=== PATIENT | male | born 1985 | race Caucasian/White ===

== ENCOUNTER 2022-01-17 01:10 | Inpatient (IN) | payer MEDICAID ==
[~2022-01-17] VITALS: Ht 180.3 cm; Wt 74.4 kg
[2022-01-17] VITALS (28 sets, daily range): BP systolic 140–179; BP diastolic 88–134
[2022-01-17] MEDS ORDERED: CLONIDINE 0.2MG TABLET PO ONE (01:30)
[2022-01-17] MEDS ORDERED: ASPIRIN 81MG TABLET PO ONE (01:30)
[2022-01-17] MEDS ORDERED: NITROGLYCERIN OINT 1GM/INCH UDPKT TD ONE (01:30)
[2022-01-17 01:48] LABS: BG BASE EXCESS -4.2 mmol/L (-2.0-2.0); BG CARBOXYHEMOGLOBIN 0.5 % (0.5-1.5); BG DEOXYHEMOGLOBIN 1.5 % (0.0-5.0); BG FRACTION INSPIRED OXYGEN 40; BG HCO3 ACT 21.4 mmol/L (22.0-26.0); BG METHEMOGLOBIN 0.2 % (0.0-1.5); BG OXYGEN SATURATION 98.5 % (92.0-98.5); BG OXYHEMOGLOBIN 97.8 % (94.0-97.0); BG PCO2 41.2 mmHg (35.0-45.0); BG PH 7.333 (7.350-7.450); BG PO2 156.5 mmHg (75.0-100.0); BG SAMPLE SITE LEFT RADIAL; BG TOTAL HEMOGLOBIN 8.8 g/dL (12.0-18.0); BG VENT MODE MASK - BIPAP
[2022-01-17 01:58] LABS: BASOPHILS % 0.7 % (0.0-2.0); EOSINOPHILS % 2.3 % (0.0-5.0); LYMPHOCYTES % 12.6 % (20.0-50.0); MEAN CORPUSCULAR HEMOGLOBIN 29.3 pg (28.0-32.0); MEAN CORPUSCULAR VOLUME 85.5 fL (80.0-94.0); MEAN PLATELET VOLUME 7.9 fl (7.4-10.4); MONOCYTES % 9.2 % (2.0-8.0); NEUTROPHILS % 75.2 % (40.0-76.0); PLATELET 177 x1000/uL (130-400); RED BLOOD CELL COUNT 2.28 mill/uL (4.7-6.1); RED CELL DISTRIBUTION WIDTH 15.7 % (11.6-14.6)
[2022-01-17 02:01] LABS: HEMATOCRIT. 19.5 % (42.0-52.0); HEMOGLOBIN. 6.7 g/dL (14.0-18.0)
[2022-01-17 02:07] LABS: CHLORIDE 100 mEq/L (98-107)
[2022-01-17 02:08] LABS: PARTIAL THROMBOPLASTIN TIME 28.2 sec (23.4-31.0); PROTHROMBIN TIME 10.9 sec (9.6-11.0)
[2022-01-17] MEDS ORDERED: ALBUTEROL (0.083%) 2.5MG/3ML NEB HHN ONE (02:45)
[2022-01-17] MEDS ORDERED: SODIUM BICARBONATE 8.4% 1 MEQ/ML 50ML SYR IV ONE (02:45)
[2022-01-17] MEDS ORDERED: SODIUM POLYSTYRENE SULFONATE 15 G/60 ML BOT PO ONE (02:45)
[2022-01-17] MEDS ORDERED: HYDRALAZINE 20MG/ML VIAL IV ONE (02:45)
[2022-01-17] MEDS ORDERED: DIPHENHYDRAMINE 50MG/ML VIAL IV PRN (04:00)
[2022-01-17] MEDS ORDERED: ACETAMINOPHEN 325MG TABLET PO PRN ×2 (04:00)
[2022-01-17] MEDS ORDERED: MAGNESIUM/ALUMINUM HYDROXIDE/SIMETHICONE 30ML UDC PO PRN (04:00)
[2022-01-17] MEDS ORDERED: GUAIFENESIN 200MG/10ML SUGAR FREE UDC PO PRN (04:00)
[2022-01-17] MEDS ORDERED: IPRATROPIUM/ALBUTEROL 0.5-3(2.5)MG/3ML NEB HHN PRN (04:00)
[2022-01-17] MEDS ORDERED: ONDANSETRON HCL 4MG/2ML INJ IV PRN (04:00)
[2022-01-17 04:37] LABS: BASOPHILS % 0.7 % (0.0-2.0); EOSINOPHILS % 1.6 % (0.0-5.0); LYMPHOCYTES % 10.5 % (20.0-50.0); MEAN CORPUSCULAR HEMOGLOBIN 28.7 pg (28.0-32.0); MEAN CORPUSCULAR VOLUME 85.9 fL (80.0-94.0); MEAN PLATELET VOLUME 7.4 fl (7.4-10.4); MONOCYTES % 10.7 % (2.0-8.0); NEUTROPHILS % 76.5 % (40.0-76.0); PLATELET 190 x1000/uL (130-400); RED BLOOD CELL COUNT 2.33 mill/uL (4.7-6.1); RED CELL DISTRIBUTION WIDTH 15.4 % (11.6-14.6)
[2022-01-17 04:40] LABS: HEMOGLOBIN. 6.7 g/dL (14.0-18.0)
[2022-01-17 05:01] LABS: T4 FREE 1.13 ng/dL (0.76-1.46)
[2022-01-17 05:18] LABS: PHOSPHORUS 8.1 mg/dL (2.5-4.9)
[2022-01-17] MEDS: HYDRALAZINE HCL 100MG TABLET PO SCH ×3 (05:43→22:12)
[2022-01-17] MEDS: NIFEDIPINE XL 30MG TAB PO SCH ×2 (05:44→12:00)
[2022-01-17] MEDS ORDERED: FUROSEMIDE 40MG/4ML VIAL IVP NR (09:30)
[2022-01-17 10:13] LABS: MEAN CORPUSCULAR HEMOGLOBIN 28.9 pg (28.0-32.0); MEAN CORPUSCULAR VOLUME 87.3 fL (80.0-94.0); PLATELET 170 x1000/uL (130-400); RED BLOOD CELL COUNT 2.22 mill/uL (4.7-6.1); RED CELL DISTRIBUTION WIDTH 15.3 % (11.6-14.6)
[2022-01-17 10:14] LABS: HEMATOCRIT 19.4 % (42.0-52.0); HEMOGLOBIN 6.4 g/dL (14.0-18.0)
[2022-01-17 10:43] LABS: BG BASE EXCESS -2.5 mmol/L (-2.0-2.0); BG DEOXYHEMOGLOBIN 2.5 % (0.0-5.0); BG FRACTION INSPIRED OXYGEN 30; BG HCO3 ACT 23.1 mmol/L (22.0-26.0); BG METHEMOGLOBIN 0.8 % (0.0-1.5); BG OXYGEN SATURATION 97.5 % (92.0-98.5); BG OXYHEMOGLOBIN 95.7 % (94.0-97.0); BG PH 7.338 (7.350-7.450); BG PO2 103.9 mmHg (75.0-100.0); BG SAMPLE SITE RIGHT RADIAL; BG TOTAL HEMOGLOBIN 6.4 g/dL (12.0-18.0); BG VENT MODE MASK - BIPAP
[2022-01-17 19:53] LABS: HEPATITIS B SURFACE ANTIGEN NEGATIVE
[2022-01-17] MEDS: SEVELAMER CARBONATE 800 MG TABLET PO SCH (22:11)
[2022-01-18] VITALS (30 sets, daily range): BP systolic 141–202; BP diastolic 76–141
[2022-01-18 06:08] LABS: MEAN CORPUSCULAR HEMOGLOBIN 28.7 pg (28.0-32.0); PLATELET 179 x1000/uL (130-400); RED BLOOD CELL COUNT 2.39 mill/uL (4.7-6.1); RED CELL DISTRIBUTION WIDTH 16.4 % (11.6-14.6)
[2022-01-18] MEDS: PANTOPRAZOLE 40MG DR TABLET PO SCH ×3 (06:13→07:59)
[2022-01-18] MEDS: HYDRALAZINE HCL 100MG TABLET PO SCH ×3 (06:14→21:26)
[2022-01-18 06:39] LABS: PHOSPHORUS 6.3 mg/dL (2.5-4.9)
[2022-01-18 06:52] LABS: HEMATOCRIT 20.1 % (42.0-52.0); HEMOGLOBIN 6.9 g/dL (14.0-18.0); MEAN CORPUSCULAR VOLUME 83.8 fL (80.0-94.0)
[2022-01-18] MEDS: CLONIDINE 0.1MG TABLET PO PRN ×2 (07:05→15:40)
[2022-01-18 07:34] LABS: BG BASE EXCESS -1.2 mmol/L (-2.0-2.0); BG CARBOXYHEMOGLOBIN 0.9 % (0.5-1.5); BG DEOXYHEMOGLOBIN 1.1 % (0.0-5.0); BG HCO3 ACT 23.8 mmol/L (22.0-26.0); BG METHEMOGLOBIN 0.5 % (0.0-1.5); BG OXYGEN SATURATION 98.9 % (92.0-98.5); BG OXYHEMOGLOBIN 97.5 % (94.0-97.0); BG PH 7.382 (7.350-7.450); BG PO2 188.7 mmHg (75.0-100.0); BG SAMPLE SITE RIGHT RADIAL; BG TOTAL HEMOGLOBIN 6.2 g/dL (12.0-18.0); BG VENT MODE MASK - BIPAP
[2022-01-18] MEDS ORDERED: ENOXAPARIN 30MG/0.3ML SYR SUBCUT SCH (09:00)
[2022-01-18] MEDS: HYDRALAZINE 20MG/ML VIAL IV PRN ×2 (09:54→17:52)
[2022-01-18] MEDS: NIFEDIPINE XL 30MG TAB PO SCH (09:54)
[2022-01-18] MEDS: FUROSEMIDE 100MG/10ML VIAL IVP SCH (09:55)
[2022-01-18] MEDS: SEVELAMER CARBONATE 800 MG TABLET PO SCH ×3 (09:55→17:52)
[2022-01-18] MEDS: ENOXAPARIN 30MG/0.3ML SYR SUBCUT SCH (15:38)
[2022-01-19] VITALS (17 sets, daily range): BP systolic 133–188; BP diastolic 44–126
[2022-01-19] MEDS: HYDRALAZINE HCL 100MG TABLET PO SCH ×2 (06:33→14:11)
[2022-01-19 06:39] LABS: HEMATOCRIT. 25.1 % (42.0-52.0); HEMOGLOBIN. 8.4 g/dL (14.0-18.0); MEAN CORPUSCULAR HEMOGLOBIN 28.1 pg (28.0-32.0); MEAN CORPUSCULAR VOLUME 83.5 fL (80.0-94.0); PLATELET 178 x1000/uL (130-400); RED CELL DISTRIBUTION WIDTH 16.7 % (11.6-14.6)
[2022-01-19] MEDS: FUROSEMIDE 100MG/10ML VIAL IVP SCH (09:08)
[2022-01-19] MEDS: NIFEDIPINE XL 30MG TAB PO SCH (09:09)
[2022-01-19] MEDS: SEVELAMER CARBONATE 800 MG TABLET PO SCH ×3 (09:09→18:02)
[2022-01-19] MEDS: PANTOPRAZOLE 40MG DR TABLET PO SCH (09:09)
[2022-01-19] MEDS: DOXAZOSIN MESYLATE 2MG TABLET PO SCH ×2 (14:09→18:02)
[2022-01-19] MEDS: CLONIDINE 0.1MG TABLET PO PRN (14:10)
[2022-01-19] MEDS ORDERED: PANT40TA51 PO (14:10)
[2022-01-19] MEDS ORDERED: DOXA2TAB PO (14:10)
[2022-01-19] MEDS ORDERED: SEVE800T8 PO (14:10)
[2022-01-19] MEDS ORDERED: HYDR100T26 PO (14:10)
[2022-01-19] MEDS: ENOXAPARIN 30MG/0.3ML SYR SUBCUT SCH (14:10)
[2022-01-19] MEDS ORDERED: LABE100T9 PO (14:10)
[2022-01-19] MEDS ORDERED: NIFE-32 PO (14:10)
[2022-01-19 15:29] LABS: PLATELET ESTIMATE NORMAL
[2022-01-19] MEDS ORDERED: LABETALOL HCL 100MG TABLET PO SCH (21:00)
[2022-01-20] MEDS ORDERED: NIFEDIPINE XL 60MG TAB PO SCH (09:00)
== END 2022-01-19 22:15 | disposition home or self-care (01) | DRG 194 ==
LOC: ER 01:17 → 5EST 02:52
PROVIDERS: ADMIT Internal Medicine; ATTEND Internal Medicine
PROC: 5A1D70Z Performance of Urinary Filtration, Intermittent, Less than 6 Hours Per Day (ICD-10-PCS; principal; 2022-01-17)
PROC: 30233N1 Transfusion of Nonautologous Red Blood Cells into Peripheral Vein, Percutaneous Approach (ICD-10-PCS; 2022-01-17)
PROC: 5A09357 Assistance with Respiratory Ventilation, Less than 24 Consecutive Hours, Continuous Positive Airway Pressure (ICD-10-PCS; 2022-01-17)
PROC: 5A1D70Z Performance of Urinary Filtration, Intermittent, Less than 6 Hours Per Day (ICD-10-PCS; 2022-01-18)
PROC: 5A09357 Assistance with Respiratory Ventilation, Less than 24 Consecutive Hours, Continuous Positive Airway Pressure (ICD-10-PCS; 2022-01-18)
PROC: 5A09357 Assistance with Respiratory Ventilation, Less than 24 Consecutive Hours, Continuous Positive Airway Pressure (ICD-10-PCS; 2022-01-19)
DX: I13.2 Hypertensive heart and chronic kidney disease with heart failure and with stage 5 chronic kidney disease, or end stage renal disease (principal); J96.01 Acute respiratory failure with hypoxia; I21.A1 Myocardial infarction type 2; I31.39 Other pericardial effusion (noninflammatory); E83.51 Hypocalcemia; D63.1 Anemia in chronic kidney disease; E83.39 Other disorders of phosphorus metabolism; I27.20 Pulmonary hypertension, unspecified; E66.2 Morbid (severe) obesity with alveolar hypoventilation; E87.5 Hyperkalemia; D64.89 Other specified anemias; I50.9 Heart failure, unspecified; Z20.822 Contact with and (suspected) exposure to COVID-19; I07.1 Rheumatic tricuspid insufficiency; N18.6 End stage renal disease; I16.9 Hypertensive crisis, unspecified; Z99.2 Dependence on renal dialysis; Z82.3 Family history of stroke; Z82.49 Family history of ischemic heart disease and other diseases of the circulatory system; Z87.891 Personal history of nicotine dependence; Z68.22 Body mass index [BMI] 22.0-22.9, adult
CPT/HCPCS: 36415; 36600; 71045; 76770; 80048; 80053; 82375; 82805; 82962; 83036; 83735; 83880; 84100; 84439; 84443; 84484; 85025; 85027; 86705; 86706; 86709; 86803; 86850; 86900; 86920; 87340; 87426; 90935; 93005; 93306; 93970; 94660; 99291; C9803; J0360; J1650; J1940; J3490; P9016

== ENCOUNTER 2022-01-31 04:51 | Inpatient (IN) | payer MEDICAID, OTHER ==
[2022-01-31] VITALS (9 sets, daily range): BP systolic 160–228; BP diastolic 105–146
[~2022-01-31] VITALS: Ht 180.3 cm; Wt 114.8 kg
[~2022-01-31 04:51] MED LIST: DOXA2TAB PO; HYDR100T26 PO; LABE100T9 PO; NIFE-32 PO; PANT40TA51 PO; SEVE800T8 PO
[2022-01-31] MEDS ORDERED: HYDRALAZINE 20MG/ML VIAL IV ONE (11:00)
[2022-01-31 11:15] LABS: CHLORIDE 105 mEq/L (98-107)
[2022-01-31 11:20] LABS: INR 1.1; PROTHROMBIN TIME 11.3 sec (9.6-11.0)
[2022-01-31 11:28] LABS: BASOPHILS % 0.8 % (0.0-2.0); HEMATOCRIT. 24.7 % (42.0-52.0); LYMPHOCYTES % 18.2 % (20.0-50.0); MEAN CORPUSCULAR HEMOGLOBIN 27.7 pg (28.0-32.0); MEAN CORPUSCULAR VOLUME 85.4 fL (80.0-94.0); MEAN PLATELET VOLUME 7.8 fl (7.4-10.4); MONOCYTES % 10.4 % (2.0-8.0); NEUTROPHILS % 67.6 % (40.0-76.0); PLATELET 244 x1000/uL (130-400); RED BLOOD CELL COUNT 2.89 mill/uL (4.7-6.1); RED CELL DISTRIBUTION WIDTH 16.1 % (11.6-14.6)
[2022-01-31] MEDS ORDERED: DEXTROSE 50% WATER 50ML SYRINGE IV NR (12:00)
[2022-01-31] MEDS ORDERED: FUROSEMIDE 40MG/4ML VIAL IVP NR (12:00)
[2022-01-31] MEDS ORDERED: INSULIN REGULAR (HUMULIN R) 300UNITS/3ML VIAL IV NR (12:00)
[2022-01-31] MEDS ORDERED: SODIUM BICARBONATE 8.4% 1 MEQ/ML 50ML SYR IV NR (12:15)
[2022-01-31] MEDS: HYDRALAZINE 20MG/ML VIAL IV NR ×2 (13:26→17:09)
[2022-01-31] MEDS ORDERED: GUAIFENESIN 200MG/10ML SUGAR FREE UDC PO PRN (13:45)
[2022-01-31] MEDS: NIFEDIPINE XL 90MG TAB PO SCH (13:45)
[2022-01-31] MEDS ORDERED: ACETAMINOPHEN 325MG TABLET PO PRN (13:45)
[2022-01-31] MEDS ORDERED: MAGNESIUM/ALUMINUM HYDROXIDE/SIMETHICONE 30ML UDC PO PRN (13:45)
[2022-01-31] MEDS ORDERED: DOCUSATE SODIUM 100MG CAPSULE PO PRN (13:45)
[2022-01-31] MEDS ORDERED: TRAMADOL 50MG TABLET PO PRN (13:45)
[2022-01-31] MEDS ORDERED: ONDANSETRON HCL 4MG/2ML INJ IV PRN (13:45)
[2022-01-31] MEDS ORDERED: HYDROCODONE/ACETAMINOPHEN 5/325MG TABLET PO PRN (13:45)
[2022-01-31] MEDS: HYDRALAZINE HCL 100MG TABLET PO SCH ×2 (14:00→21:04)
[2022-01-31] MEDS: CLONIDINE 0.1MG TABLET PO PRN (17:10)
[2022-01-31 20:33] LABS: HEPATITIS B SURFACE ANTIGEN NEGATIVE
[2022-01-31] MEDS: LABETALOL HCL 100MG TABLET PO SCH (21:04)
[2022-02-01] VITALS (15 sets, daily range): BP systolic 128–176; BP diastolic 68–131
[2022-02-01] MEDS ORDERED: DIPHENHYDRAMINE 50MG/ML VIAL IM PRN ×2 (02:15→04:45)
[2022-02-01] MEDS: HYDRALAZINE HCL 100MG TABLET PO SCH ×3 (06:23→21:06)
[2022-02-01 07:11] LABS: BASOPHILS % 0.9 % (0.0-2.0); EOSINOPHILS % 3.6 % (0.0-5.0); HEMATOCRIT. 23.4 % (42.0-52.0); LYMPHOCYTES % 25.6 % (20.0-50.0); MEAN CORPUSCULAR HEMOGLOBIN 28.5 pg (28.0-32.0); MEAN CORPUSCULAR VOLUME 83.8 fL (80.0-94.0); MEAN PLATELET VOLUME 7.9 fl (7.4-10.4); NEUTROPHILS % 58.9 % (40.0-76.0); PLATELET 223 x1000/uL (130-400); RED BLOOD CELL COUNT 2.79 mill/uL (4.7-6.1); RED CELL DISTRIBUTION WIDTH 16.1 % (11.6-14.6)
[2022-02-01] MEDS ORDERED: NALOXONE HCL 0.4MG/ML VIAL IV PRN (07:30)
[2022-02-01] MEDS ORDERED: DIPHENHYDRAMINE 50MG CAPSULE PO PRN (07:30)
[2022-02-01] MEDS: LABETALOL HCL 100MG TABLET PO SCH (08:34)
[2022-02-01] MEDS: NIFEDIPINE XL 90MG TAB PO SCH (08:35)
[2022-02-01] MEDS: CLONIDINE 0.1MG TABLET PO PRN (08:35)
[2022-02-01 10:23] LABS: CHLORIDE 103 mEq/L (98-107)
[2022-02-01] MEDS: DOXAZOSIN MESYLATE 2MG TABLET PO SCH ×2 (10:31→16:32)
[2022-02-01] MEDS: LABETALOL HCL 200MG TABLET PO SCH ×2 (10:32→21:07)
[2022-02-01 10:38] LABS: HDL CHOLESTEROL 33 mg/dL (40-59); LDL CHOLESTEROL 88 mg/dL (5-100)
[2022-02-02] VITALS (9 sets, daily range): BP systolic 55–163; BP diastolic 85–110
[2022-02-02] MEDS: CLONIDINE 0.1MG TABLET PO PRN (04:31)
[2022-02-02] MEDS: HYDRALAZINE HCL 100MG TABLET PO SCH (05:09)
[2022-02-02] MEDS ORDERED: NIFEDIPINE XL 60MG TAB PO SCH (09:00)
[2022-02-02] MEDS ORDERED: DOXAZOSIN MESYLATE 2MG TABLET PO SCH (09:00)
[2022-02-02] MEDS ORDERED: LABETALOL HCL 200MG TABLET PO SCH (09:00)
== END 2022-02-02 15:15 | disposition home or self-care (01) | DRG 194 ==
LOC: ER 04:51 → 8WST 12:21 → EDBEDREQTM 12:24 → EDBEDREQ 12:24
PROVIDERS: ADMIT Hospitalist; ATTEND Hospitalist
PROC: 5A1D70Z Performance of Urinary Filtration, Intermittent, Less than 6 Hours Per Day (ICD-10-PCS; principal; 2022-01-31)
PROC: 5A1D70Z Performance of Urinary Filtration, Intermittent, Less than 6 Hours Per Day (ICD-10-PCS; 2022-02-01)
PROC: 5A1D70Z Performance of Urinary Filtration, Intermittent, Less than 6 Hours Per Day (ICD-10-PCS; 2022-02-02)
DX: I13.2 Hypertensive heart and chronic kidney disease with heart failure and with stage 5 chronic kidney disease, or end stage renal disease (principal); N18.6 End stage renal disease; D63.1 Anemia in chronic kidney disease; I16.1 Hypertensive emergency; I50.33 Acute on chronic diastolic (congestive) heart failure; I16.0 Hypertensive urgency; E87.5 Hyperkalemia; G47.30 Sleep apnea, unspecified; Z99.2 Dependence on renal dialysis
CPT/HCPCS: 36415; 71045; 80053; 80061; 83880; 84484; 85025; 86705; 86709; 86803; 87340; 90935; 93005; 99291; J0360; J1200; J1815; J1940; J3490

== ENCOUNTER 2022-10-29 12:34 | Emergency (ER) | payer MEDICAID ==
[~2022-10-29] VITALS: Ht 167.6 cm; Wt 70.0 kg
[~2022-10-29 12:34] MED LIST changes: +CLON0.2T PO; +DOXA-14 PO; -DOXA2TAB PO; -LABE100T9 PO
[2022-10-29 12:54] VITALS: BP 207/105; PULSE 123; RESP 20; TEMP 98.3; O2SAT 98
== END 2022-10-29 14:48 | disposition left against medical advice (07) ==
LOC: ER 12:34
DX: R10.33 Periumbilical pain (principal); I10 Essential (primary) hypertension; N18.6 End stage renal disease; Z99.2 Dependence on renal dialysis; Z79.899 Other long term (current) drug therapy
CPT/HCPCS: 99283

== ENCOUNTER 2023-06-26 10:27 | Inpatient (IN) | payer MEDICAID ==
[~2023-06-26] VITALS: Ht 167.6 cm; Wt 77.1 kg
[2023-06-26 11:54] LABS: BASOPHILS % 1.2 % (0.0-2.0); EOSINOPHILS % 2.6 % (0.0-5.0); HEMATOCRIT. 30.1 % (42.0-52.0); HEMOGLOBIN. 10.2 g/dL (14.0-18.0); LYMPHOCYTES % 17.5 % (20.0-50.0); MEAN CORPUSCULAR VOLUME 94.2 fL (80.0-94.0); MEAN PLATELET VOLUME 9.7 fl (7.4-10.4); MONOCYTES % 7.7 % (2.0-8.0); PLATELET 184 x1000/uL (130-400); RED CELL DISTRIBUTION WIDTH 18.9 % (11.6-14.6); WHITE BLOOD COUNT 5.2 x1000/uL (4.5-11.0)
[2023-06-26 12:25] LABS: ALANINE AMINOTRANSFERASE 10 IU/L (10-49); ALBUMIN 3.9 g/dL (3.2-4.8); ASPARTATE AMINOTRANSFERASE 11 IU/L (<34); BILIRUBIN TOTAL 0.4 mg/dL (0.1-1.0); CALCIUM 8.1 mg/dL (8.7-10.4); CARBON DIOXIDE 26 mEq/L (21-32); CHLORIDE 104 mEq/L (98-107); GLUCOSE 142 mg/dL (70-105); SODIUM 139 mEq/L (136-145); TROPONIN I HIGH SENSITIVITY 21 ng/L (3.0-53); UREA NITROGEN BLOOD 47 mg/dL (9-23)
[2023-06-26 12:30] LABS: CREATININE 10.5 mg/dL (0.6-1.3)
[2023-06-26 15:40] LABS: TROPONIN I HIGH SENSITIVITY 23 ng/L (3.0-53)
[2023-06-26] MEDS ORDERED: DOCUSATE SODIUM 100MG CAPSULE PO PRN (19:45)
[2023-06-26] MEDS ORDERED: ACETAMINOPHEN 325MG TABLET PO PRN (19:45)
[2023-06-26] MEDS ORDERED: IPRATROPIUM/ALBUTEROL 0.5-3(2.5)MG/3ML NEB HHN PRN (19:45)
[2023-06-26] MEDS: CLONIDINE 0.1MG TABLET PO PRN (20:59)
[2023-06-27] VITALS (16 sets, daily range): BP systolic 137–162; BP diastolic 83–104; PULSE 56–65; RESP 16–20; TEMP 97.5–98.7
[2023-06-27] MEDS: ACETAMINOPHEN 325MG TABLET PO PRN (04:00)
[2023-06-27] MEDS: HYDROCODONE/ACETAMINOPHEN 5/325MG TABLET PO PRN (06:44)
[2023-06-27 06:53] LABS: BASOPHILS % 1.2 % (0.0-2.0); EOSINOPHILS % 2.9 % (0.0-5.0); HEMOGLOBIN. 10.2 g/dL (14.0-18.0); LYMPHOCYTES % 20.8 % (20.0-50.0); MEAN CORPUSCULAR HEMOGLOBIN 30.6 pg (28.0-32.0); MEAN CORPUSCULAR HGB CONC 32.8 g/dL (31.0-37.0); MEAN CORPUSCULAR VOLUME 93.4 fL (80.0-94.0); MEAN PLATELET VOLUME 9.6 fl (7.4-10.4); MONOCYTES % 7.6 % (2.0-8.0); NEUTROPHILS % 67.5 % (40.0-76.0); PLATELET 176 x1000/uL (130-400); RED BLOOD CELL COUNT 3.32 mill/uL (4.7-6.1); RED CELL DISTRIBUTION WIDTH 19.1 % (11.6-14.6); WHITE BLOOD COUNT 4.8 x1000/uL (4.5-11.0)
[2023-06-27 07:08] LABS: CALCIUM 8.4 mg/dL (8.7-10.4)
[2023-06-27 07:45] LABS: POTASSIUM 6.3 mEq/L (3.5-5.1)
[2023-06-27 10:14] LABS: TROPONIN I HIGH SENSITIVITY 20 ng/L (3.0-53)
[2023-06-27] MEDS ORDERED: NALOXONE HCL 0.4MG/ML VIAL IV PRN (11:45)
[2023-06-27] MEDS: ONDANSETRON HCL 4MG/2ML INJ IV PRN (12:19)
[2023-06-27] MEDS: SEVELAMER CARBONATE 800 MG TABLET PO SCH (12:20)
[2023-06-27] MEDS: DOXAZOSIN MESYLATE 2MG TABLET PO SCH (12:21)
[2023-06-27] MEDS: HYDRALAZINE HCL 100MG TABLET PO SCH (14:08)
[2023-06-27] MEDS: CLONIDINE 0.2MG TABLET PO SCH (14:08)
[2023-06-27 14:41] LABS: HEPATITIS A AB IGM NEGATIVE (Negative); HEPATITIS B CORE AB IGM NEGATIVE (Negative); HEPATITIS B SURFACE ANTIGEN NEGATIVE (Negative); HEPATITIS C AB NON REACTIVE (Neg) (Negative)
[2023-06-28] VITALS (17 sets, daily range): BP systolic 137–178; BP diastolic 86–112; PULSE 54–81; RESP 16–20; TEMP 97.2–98
[2023-06-28 07:30] LABS: BASOPHILS % 0.7 % (0.0-2.0); EOSINOPHILS % 2.8 % (0.0-5.0); HEMATOCRIT. 30.4 % (42.0-52.0); HEMOGLOBIN. 10.2 g/dL (14.0-18.0); MEAN CORPUSCULAR HEMOGLOBIN 31.4 pg (28.0-32.0); MEAN CORPUSCULAR HGB CONC 33.4 g/dL (31.0-37.0); MEAN PLATELET VOLUME 9.6 fl (7.4-10.4); MONOCYTES % 7.4 % (2.0-8.0); NEUTROPHILS % 71.1 % (40.0-76.0); PLATELET 188 x1000/uL (130-400); RED BLOOD CELL COUNT 3.24 mill/uL (4.7-6.1); RED CELL DISTRIBUTION WIDTH 18.7 % (11.6-14.6); WHITE BLOOD COUNT 4.3 x1000/uL (4.5-11.0)
[2023-06-28 07:53] LABS: CALCIUM 8.1 mg/dL (8.7-10.4)
[2023-06-28 08:25] LABS: CREATININE 10.2 mg/dL (0.6-1.3); POTASSIUM 6.5 mEq/L (3.5-5.1)
[2023-06-28] MEDS: INSULIN REGULAR (HUMULIN R) 300UNITS/3ML VIAL IV NR (13:34)
[2023-06-28] MEDS: DEXTROSE 50% WATER 50ML SYRINGE IV NR (13:35)
[2023-06-28] MEDS: SODIUM BICARBONATE 8.4% 1 MEQ/ML 50ML SYR IV NR (13:35)
[2023-06-28 16:14] LABS: POTASSIUM 4.2 mEq/L (3.5-5.1)
[2023-06-29] VITALS (7 sets, daily range): BP systolic 127–178; BP diastolic 74–108; PULSE 58–71; RESP 18–20; TEMP 97.1–98.7; O2SAT 98
[2023-06-29 07:18] LABS: BASOPHILS % 1.1 % (0.0-2.0); EOSINOPHILS % 3.7 % (0.0-5.0); HEMATOCRIT. 28.9 % (42.0-52.0); HEMOGLOBIN. 9.8 g/dL (14.0-18.0); LYMPHOCYTES % 29.7 % (20.0-50.0); MEAN CORPUSCULAR HEMOGLOBIN 31.7 pg (28.0-32.0); MEAN CORPUSCULAR HGB CONC 33.7 g/dL (31.0-37.0); MEAN CORPUSCULAR VOLUME 93.9 fL (80.0-94.0); MEAN PLATELET VOLUME 9.8 fl (7.4-10.4); MONOCYTES % 11.1 % (2.0-8.0); NEUTROPHILS % 54.4 % (40.0-76.0); PLATELET 173 x1000/uL (130-400); RED BLOOD CELL COUNT 3.08 mill/uL (4.7-6.1); RED CELL DISTRIBUTION WIDTH 18.2 % (11.6-14.6); WHITE BLOOD COUNT 3.6 x1000/uL (4.5-11.0)
[2023-06-29 07:41] LABS: CALCIUM 8.2 mg/dL (8.7-10.4); POTASSIUM 5.1 mEq/L (3.5-5.1)
[2023-06-29 07:43] LABS: CREATININE 9.8 mg/dL (0.6-1.3)
== END 2023-06-29 15:50 | disposition home or self-care (01) | DRG 199 ==
LOC: ER 10:27 → EDBEDREQ 16:26 → EDBEDREQTM 16:26 → 7WST 22:30
PROVIDERS: ADMIT Internal Medicine; ATTEND Internal Medicine
PROC: 5A1D70Z Performance of Urinary Filtration, Intermittent, Less than 6 Hours Per Day (ICD-10-PCS; principal; 2023-06-27)
PROC: 5A1D70Z Performance of Urinary Filtration, Intermittent, Less than 6 Hours Per Day (ICD-10-PCS; 2023-06-28)
DX: I16.0 Hypertensive urgency (principal); I31.39 Other pericardial effusion (noninflammatory); N18.6 End stage renal disease; E11.22 Type 2 diabetes mellitus with diabetic chronic kidney disease; D64.9 Anemia, unspecified; E78.5 Hyperlipidemia, unspecified; E87.5 Hyperkalemia; I12.0 Hypertensive chronic kidney disease with stage 5 chronic kidney disease or end stage renal disease; Z79.899 Other long term (current) drug therapy; Z99.2 Dependence on renal dialysis; Z91.158 Patient's noncompliance with renal dialysis for other reason
CPT/HCPCS: 36415; 71045; 80048; 80053; 84132; 84484; 85025; 85379; 86705; 86709; 87340; 90935; 93005; 93306; 93970; 99285; J1815; J2405; J3490

== ENCOUNTER 2023-07-15 10:03 | Emergency (ER) | payer MEDICAID ==
[~2023-07-15] VITALS: Ht 175.3 cm; Wt 82.0 kg
[~2023-07-15 10:03] MED LIST changes: -NIFE-32 PO
[2023-07-15 10:08] VITALS: BP 212/113; PULSE 105; RESP 18; TEMP 98.1; O2SAT 99
[2023-07-15] MEDS: MORPHINE SULFATE 4 MG/ML INJ (FOR IV/IM USE) IV STA (10:59)
== END 2023-07-15 11:04 | disposition left against medical advice (07) ==
LOC: ER 10:03
DX: R10.13 Epigastric pain (principal); I10 Essential (primary) hypertension; F12.10 Cannabis abuse, uncomplicated; Z99.2 Dependence on renal dialysis
CPT/HCPCS: 99283

== ENCOUNTER 2023-09-07 08:35 | Emergency (ER) | payer MEDICAID ==
[~2023-09-07] VITALS: Ht 172.7 cm; Wt 77.0 kg
[2023-09-07 08:37] VITALS: TEMP 98.5; O2SAT 99
[2023-09-07] MEDS: ONDANSETRON 4MG ODT PO ONE (09:05)
[2023-09-07] MEDS: MORPHINE SULFATE 4 MG/ML INJ (FOR IV/IM USE) IM ONE (09:06)
[2023-09-07 09:23] LABS: BASOPHILS % 0.6 % (0.0-2.0); HEMATOCRIT. 27.2 % (42.0-52.0); LYMPHOCYTES % 18.6 % (20.0-50.0); MEAN CORPUSCULAR HEMOGLOBIN 29.4 pg (28.0-32.0); MEAN CORPUSCULAR VOLUME 89.1 fL (80.0-94.0); MEAN PLATELET VOLUME 8.5 fl (7.4-10.4); MONOCYTES % 10.8 % (2.0-8.0); PLATELET 193 x1000/uL (130-400); RED BLOOD CELL COUNT 3.06 mill/uL (4.7-6.1); WHITE BLOOD COUNT 3.8 x1000/uL (4.5-11.0)
[2023-09-07 09:29] LABS: CARBON DIOXIDE 32 mEq/L (21-32); CHLORIDE 101 mEq/L (98-107); POTASSIUM 3.5 mEq/L (3.5-5.1); SODIUM 139 mEq/L (136-145)
[2023-09-07 09:30] LABS: CALCIUM 8.9 mg/dL (8.7-10.4)
[2023-09-07 09:35] LABS: GLUCOSE 75 mg/dL (70-105); UREA NITROGEN BLOOD 30 mg/dL (9-23)
[2023-09-07 09:37] LABS: ALANINE AMINOTRANSFERASE 12 IU/L (10-49); ALBUMIN 4.5 g/dL (3.2-4.8); ASPARTATE AMINOTRANSFERASE 10 IU/L (<34); BILIRUBIN DIRECT 0.2 mg/dL (<=3.0); BILIRUBIN TOTAL 0.5 mg/dL (0.1-1.0); PROTEIN TOTAL 6.7 g/dL (6.0-8.3)
[2023-09-07 09:54] LABS: CREATININE 6.3 mg/dL (0.6-1.3)
[2023-09-07 11:43] VITALS: BP 153/90; PULSE 72; RESP 17
== END 2023-09-07 12:15 | disposition home or self-care (01) ==
LOC: ER 08:35
DX: R10.84 Generalized abdominal pain (principal); I12.0 Hypertensive chronic kidney disease with stage 5 chronic kidney disease or end stage renal disease; N18.6 End stage renal disease; Z98.890 Other specified postprocedural states
CPT/HCPCS: 80076; 80048; 83690; 85025; 36415; 96372; 99285; Q0162; J2270; Z7610 ×3